=== PATIENT | male | born 1980 | race Caucasian/White ===

== ENCOUNTER 2016-11-30 14:48 | Emergency (ER) | payer OTHER ==
[~2016-11-30] VITALS: Ht 190.5 cm; Wt 104.3 kg
[~2016-11-30 14:48] MED LIST: BACTRIM DS 8001 TAB PO; FLONASE 50 MCG16 GM; HYDROCODON-ACETAMINO OR; KEFLEX 500MG.500 MG PO; OMEPRAZOLE20 MG PO; PROAIR HFA0.09 MG/AC IH; SERTRALINE 100100 MG PO; VENLAFAXINE HY150 MG PO
[2016-11-30] MEDS ORDERED: BACTROBAN2% TP (15:41)
[2016-11-30] MEDS ORDERED: KEFLEX500 M1 PO (15:41)
--- NOTE | 2016-11-30 15:41 | Emergency Room Report ---
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 N Clinical Suspician of Infection? N Mental Status: 1 - Regular (Normal Baseline) Sepsis Risk:Low Sepsis Risk Have you (or family members/close friends) recently traveled outside the [place]? N If Yes, where/when: Have you had exposure to infectious disease within the past month? N TB? Other? 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 Tetanus given in ED today Cardiac Chest Pain Chest pain indicative of cardiac No ALLERGIES Coded Allergies: escitalopram (Intermediate, ANXIETY 09/20/15) Home Medications Active Scripts SULFAMETHOXAZOLE/TRIMETHOPRIM (Sulfamethoxazole-Tmp Ds Tablet) 1 TAB PO BID #20 TAB Prov: 05/18/14 Reported Medications Omeprazole (Omeprazole 20MG) 20 MG PO DAILY Sertraline Hydrochloride (Sertraline 100MG) 100 MG PO DAILY #90 MISCELLANEOUS (UNKNOWN MEDICATION) 1 EDEL TP DAILY VENLAFAXINE HCL (Venlafaxine HCl ER) 150 MG PO DAILY #30 [HYDROCODON-ACETAMINO] 1 TAB OR Q4HP PRN PAIN #40 Fluticasone Propionate (Flonase 50 Mcg Nasal [place]) 1 SPRAY NA BID #16 Albuterol Sulfate (Proair Hfa) 1 PUFF IH Q6HP PRN ASTHMA CEPHALEXIN (Keflex 500MG Capsule) 500 MG PO BID SULFAMETHOXAZOLE/TRIMETHOPRIM (Sulfamethoxazole-Tmp Ds Tablet) 1 TAB PO BID History Medical History General Angina: No [place]: No Hypertension? No Hyperlipidemia? No CHF? No COPD? No Asthma? Yes CVA? No Seizures? No Diabetes? No GB Disease: No MRSA? Yes TB? No Cancer? No Immunization Hx DT/Tetanus Unknown Surgical Hx Previous Surgery?Y EAR Social History Smoking Hx Smoker: Never Smoker Tobacco: No Alcohol Alcohol: No Review of Systems All Other Systems Reviewed and Negative Constitutional see HPI Skin see HPI Physical Exam Vital Signs Vital Signs Date Time Temp Pulse Resp B/P Pulse O2 O2 Flow FiO2 Ox Delivery Rate 11/30 1453 97.9 87 18 140/88 96 General Appearance normal appearance, WD/WN, no apparent distress Respiratory Status No: respiratory distress. 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 No Results/Orders Current Medication Orders Sig/Marsha Start time Last Medication Dose Route Stop Time Status Admin Diphtheria/Pertussis/ 0 .STK-MED ONE 11/30 1501 DC Tetanus Vacc IM Diphtheria/Pertussis/ 0.5 ML ONCE ONE 11/30 1500 DC 11/30 Tetanus Vacc IM 11/30 1501 1509 Lidocaine HCl 20 ML ONCE ONE 11/30 1500 DC 11/30 IJ 11/30 1501 1509 Lidocaine HCl 0 .STK-MED ONE 11/30 1454 DC .ROUTE Procedures Laceration/Wound Repair Laceration/Wound Repair Risks/benefits discussed with pt/guardian? Yes Tetanus status not up to date, given Tdap in the ED Wound Location finger(s) Wound Length (cm) 1 Wound's Depth, Shape sucutaneous tissue Wound Explored clean Risk of retained FB explained to pt/guardian? No Irrigated w/ Saline (ccs) 25 Wound Prep Hibiclens, Saline Anesthesia 1% Lidocaine Volume Anesthetic (ccs) 2 Wound Debrided none Wound Repaired With sutures Suture Size/Type 5:0 Layer Closure No Total Number Sutures 5 Sterile Dressing Applied Yes Splint Applied No Departure Departure Time of Disposition 1538 Disposition DC Home or Self Care(routine) Clinical Impression Primary Impression: Laceration of left middle finger Condition STABLE Referrals Alejandro TAY,Jan (Family): 1 Week-Call Office Patient Instructions DI for Laceration Repair, Laceration Repair Additional Instructions Keep wound clean and change dressing daily with Bactroban ointment. Take Keflex 500 mg QID for 10 days. Follow up for suture removal in 9 to 10 days Discharge Counseling Counseled pt/family regarding diagnosis, medications/RX, home care, follow up needs Prescriptions Current Visit Scripts MUPIROCIN 2% (Bactroban Oint) 0 GM TP DAILY #1 TUBE Cephalexin (Keflex 500MG) 500 MG PO QID #40 CAP ED Critical Care Critical Care No If Critical Care minutes are documented, the time involved in the performance of seperately reportable procedures was not counted toward critical care time documented. I directly delivered medical care to this critically ill and/or injured patient. Timely evaluation and treatment was necessary to address the significant organ system(s) dysfunction present in this patient. at 6205
--- NOTE | 2016-11-30 15:41 | Emergency Room Report ---
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 N Clinical Suspician of Infection? N Mental Status: 1 - Regular (Normal Baseline) Sepsis Risk:Low Sepsis Risk Have you (or family members/close friends) recently traveled outside the [place]? N If Yes, where/when: Have you had exposure to infectious disease within the past month? N TB? Other? 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 Tetanus given in ED today Cardiac Chest Pain Chest pain indicative of cardiac No ALLERGIES Coded Allergies: escitalopram (Intermediate, ANXIETY 09/20/15) Home Medications Active Scripts SULFAMETHOXAZOLE/TRIMETHOPRIM (Sulfamethoxazole-Tmp Ds Tablet) 1 TAB PO BID #20 TAB Prov: 05/18/14 Reported Medications Omeprazole (Omeprazole 20MG) 20 MG PO DAILY Sertraline Hydrochloride (Sertraline 100MG) 100 MG PO DAILY #90 MISCELLANEOUS (UNKNOWN MEDICATION) 1 EDEL TP DAILY VENLAFAXINE HCL (Venlafaxine HCl ER) 150 MG PO DAILY #30 [HYDROCODON-ACETAMINO] 1 TAB OR Q4HP PRN PAIN #40 Fluticasone Propionate (Flonase 50 Mcg Nasal [place]) 1 SPRAY NA BID #16 Albuterol Sulfate (Proair Hfa) 1 PUFF IH Q6HP PRN ASTHMA CEPHALEXIN (Keflex 500MG Capsule) 500 MG PO BID SULFAMETHOXAZOLE/TRIMETHOPRIM (Sulfamethoxazole-Tmp Ds Tablet) 1 TAB PO BID History Medical History General Angina: No [place]: No Hypertension? No Hyperlipidemia? No CHF? No COPD? No Asthma? Yes CVA? No Seizures? No Diabetes? No GB Disease: No MRSA? Yes TB? No Cancer? No Immunization Hx DT/Tetanus Unknown Surgical Hx Previous Surgery?Y EAR Social History Smoking Hx Smoker: Never Smoker Tobacco: No Alcohol Alcohol: No Review of Systems All Other Systems Reviewed and Negative Constitutional see HPI Skin see HPI Physical Exam Vital Signs Vital Signs Date Time Temp Pulse Resp B/P Pulse O2 O2 Flow FiO2 Ox Delivery Rate 11/30 1453 97.9 87 18 140/88 96 General Appearance normal appearance, WD/WN, no apparent distress Respiratory Status No: respiratory distress. 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 No Results/Orders Current Medication Orders Sig/Marsha Start time Last Medication Dose Route Stop Time Status Admin Diphtheria/Pertussis/ 0 .STK-MED ONE 11/30 1501 DC Tetanus Vacc IM Diphtheria/Pertussis/ 0.5 ML ONCE ONE 11/30 1500 DC 11/30 Tetanus Vacc IM 11/30 1501 1509 Lidocaine HCl 20 ML ONCE ONE 11/30 1500 DC 11/30 IJ 11/30 1501 1509 Lidocaine HCl 0 .STK-MED ONE 11/30 1454 DC .ROUTE Procedures Laceration/Wound Repair Laceration/Wound Repair Risks/benefits discussed with pt/guardian? Yes Tetanus status not up to date, given Tdap in the ED Wound Location finger(s) Wound Length (cm) 1 Wound's Depth, Shape sucutaneous tissue Wound Explored clean Risk of retained FB explained to pt/guardian? No Irrigated w/ Saline (ccs) 25 Wound Prep Hibiclens, Saline Anesthesia 1% Lidocaine Volume Anesthetic (ccs) 2 Wound Debrided none Wound Repaired With sutures Suture Size/Type 5:0 Layer Closure No Total Number Sutures 5 Sterile Dressing Applied Yes Splint Applied No Departure Departure Time of Disposition 1538 Disposition DC Home or Self Care(routine) Clinical Impression Primary Impression: Laceration of left middle finger Condition STABLE Referrals Alejandro TAY,Jan (Family): 1 Week-Call Office Patient Instructions DI for Laceration Repair, Laceration Repair Additional Instructions Keep wound clean and change dressing daily with Bactroban ointment. Take Keflex 500 mg QID for 10 days. Follow up for suture removal in 9 to 10 days Discharge Counseling Counseled pt/family regarding diagnosis, medications/RX, home care, follow up needs Prescriptions Current Visit Scripts MUPIROCIN 2% (Bactroban Oint) 0 GM TP DAILY #1 TUBE Cephalexin (Keflex 500MG) 500 MG PO QID #40 CAP ED Critical Care Critical Care No If Critical Care minutes are documented, the time involved in the performance of seperately reportable procedures was not counted toward critical care time documented. I directly delivered medical care to this critically ill and/or injured patient. Timely evaluation and treatment was necessary to address the significant organ system(s) dysfunction present in this patient. at 5463
[2016-11-30 15:47] VITALS: BP 136/96
== END 2016-11-30 15:50 | disposition home or self-care (01) ==
LOC: ER 14:48
PROC: 0HQGXZZ Repair Left Hand Skin, External Approach (ICD-10-PCS; principal; 2016-11-30)
DX: S61.213A Laceration without foreign body of left middle finger without damage to nail, initial encounter (principal); W26.0XXA Contact with knife, initial encounter; Y92.009 Unspecified place in unspecified non-institutional (private) residence as the place of occurrence of the external cause; Z23 Encounter for immunization

== ENCOUNTER → 2017-01-10 | Outpatient (CLI) | payer OTHER ==
[~2017-01-10] MED LIST changes: +BACTROBAN2% TP; +KEFLEX500 M1 PO
[2017-01-10 15:11] LABS: HEMOGLOBIN 15.9 g/dL (14.1-18.0); LYMPH # 1.6 K/mm3 (0.7-4.5)
[2017-01-10 16:23] LABS: BUN 14 mg/dL (7-18)
[2017-01-10 16:25] LABS: GFR (ESTIMATED) 97 ML/MIN (>60)
[2017-01-13 07:38] LABS: Vitamin D, 25-Hydroxy 32.7 ng/mL (30.0-100.0)
== END ==
LOC: LAB 14:37
PROVIDERS: Nurse Practitioner Family
DX: R53.83 Other fatigue (principal)